=== PATIENT | male | born 1995 | race Two or more races ===

== ENCOUNTER 2022-01-10 20:04 | Emergency (ER) | payer OTHER ==
[~2022-01-10] VITALS: Ht 177.8 cm; Wt 68.0 kg
[2022-01-11] MEDS ORDERED: ORPHENADRINE C100 MG PO (00:20)
[2022-01-11] MEDS ORDERED: DICLOFENAC POTA50 MG PO (00:20)
== END 2022-01-11 00:37 ==
LOC: ER 20:04
DX: S33.5XXA Sprain of ligaments of lumbar spine, initial encounter (principal); W18.30XA Fall on same level, unspecified, initial encounter; Y93.79 Activity, other specified sports and athletics; Y92.9 Unspecified place or not applicable

== ENCOUNTER 2022-02-07 12:42 | Emergency (ER) | payer OTHER ==
[~2022-02-07] VITALS: Ht 157.5 cm; Wt 65.8 kg
[~2022-02-07 12:42] MED LIST: DICLOFENAC POTA50 MG PO; ORPHENADRINE C100 MG PO
== END 2022-02-07 14:36 | disposition home or self-care (01) ==
LOC: ER 12:42
DX: M54.50 Low back pain, unspecified (principal)

== ENCOUNTER → 2022-07-30 | Emergency (ER) | payer OTHER | END | disposition left against medical advice (07) | LOC: ER 18:44 | DX: Z53.21 Procedure and treatment not carried out due to patient leaving prior to being seen by health care provider (principal) ==

== ENCOUNTER 2022-09-08 20:44 | Emergency (ER) | payer OTHER ==
[~2022-09-08] VITALS: Ht 180.3 cm; Wt 63.5 kg
== END 2022-09-08 22:05 | disposition home or self-care (01) ==
LOC: ER 20:44
DX: B35.8 Other dermatophytoses (principal)

== ENCOUNTER → 2022-10-02 | Emergency (ER) | payer OTHER ==
[~2022-10-02] VITALS: Ht 180.3 cm; Wt 61.2 kg
== END | disposition home or self-care (01) ==
LOC: ER 10:41
DX: R10.9 Unspecified abdominal pain (principal); R11.10 Vomiting, unspecified; Z20.822 Contact with and (suspected) exposure to COVID-19

== ENCOUNTER 2022-11-20 10:17 | Emergency (ER) | payer OTHER ==
[~2022-11-20] VITALS: Ht 180.3 cm; Wt 68.0 kg
== END 2022-11-20 14:53 | disposition designated cancer center or children's hospital (05) ==
LOC: ER 10:17
DX: T22.612A Corrosion of second degree of left forearm, initial encounter (principal); T22.611A Corrosion of second degree of right forearm, initial encounter; T58.11XA Toxic effect of carbon monoxide from utility gas, accidental (unintentional), initial encounter; Y93.G3 Activity, cooking and baking; Y92.63 Factory as the place of occurrence of the external cause; T20.02XA Burn of unspecified degree of lip(s), initial encounter; Z20.822 Contact with and (suspected) exposure to COVID-19

== ENCOUNTER 2024-04-19 20:45 | Emergency (ER) | payer OTHER ==
[~2024-04-19] VITALS: Ht 180.3 cm; Wt 74.8 kg
[2024-04-19] MEDS ORDERED: ONDANSETRON HCL 2 MG/ML VIAL IV ONE (23:15)
[2024-04-19] MEDS ORDERED: 0.9 % SODIUM CHLORIDE 250 ML IV ONE (23:15)
[2024-04-19] MEDS ORDERED: FAMOtidine 10 MG/ML (4ML VIAL) IV ONE (23:15)
[2024-04-20 00:04] LABS: HEMATOCRIT 40.2 % (39.0-48.0); HEMOGLOBIN 13.4 g/dL (13-16.00); MEAN CELL VOLUME 83.6 fL (80.0-100.00); MEAN CORPUSCULAR HGB CONC 33.5 g/dl (32.0-36.0); PLATELET COUNT 325 K/uL (150-450); RED CELL DISTRIBUTION WIDTH 13.1 % (11.5-14.5)
[2024-04-20 00:31] LABS: ALBUMIN 3.8 gm/dL (3.4-5.0); BILIRUBIN TOTAL 1.13 mg/dL (0.3-1.2); CREATININE SERUM 1.02 mg/dL (0.70-1.30); GFR 88.28; GLOBULINA 3.8 G/DL (2.4-3.5); POTASSIUM 3.47 mEq/L (3.5-5.1); TOTAL PROTEIN 7.6 gm/dL (6.4-8.2)
== END 2024-04-20 03:50 | disposition home or self-care (01) ==
LOC: ER 20:47
PROVIDERS: Preventive Medicine Public Health & General Preventive Medicine
DX: R53.81 Other malaise (principal); K52.89 Other specified noninfective gastroenteritis and colitis